=== PATIENT | female | born 1970 | race Caucasian/White ===

== ENCOUNTER 2019-10-06 08:29 | Emergency (ER) | payer BC, SELFPAY ==
--- NOTE | ~2019-10-06 | US_ITS ---
EXAMINATION: US venous doppler [facility] DATE: 10/06/2019 09:09 INDICATION: Left calf pain. TECHNIQUE: Grayscale ultrasound images without and with compression and Doppler ultrasound images of the left lower extremity veins were obtained. COMPARISON: Left knee radiographs 10/06/2019 FINDINGS: The visualized portions of left common femoral vein, profunda (deep) femoral vein, femoral vein, popl iteal vein, peroneal veins, posterior tibial veins, and greater saphenous vein outflow are patent. Th ere is a moderate-sized Sims's cyst with loose bodies. IMPRESSION: 1. No deep venous thrombosis. 2. Moderate-sized left Sims's cyst with loose bodies. Reviewed, dictated and finalized at location A.
--- NOTE | ~2019-10-06 | XR_ITS ---
EXAMINATION: XR knee LT min 4V DATE: 10/06/2019 08:51 INDICATION: Anterior left knee pain. TECHNIQUE: 4 views of left knee were obtained. COMPARISON: None. FINDINGS: Bone alignment is normal. No fracture. There is mild osteoarthritis of medial and patellofe moral compartments. No knee joint effusion. Calcifications posterior to the knee are likely loose bod ies in a Sims's cyst. IMPRESSION: 1. Mild left knee osteoarthritis. 2. Calcifications posterior to the knee, likely loose bodies in a Sims's cyst. Reviewed, dictated and finalized at location A.
--- NOTE | 2019-10-06 08:40 | ED.LOWEXIN ---
HPI - Extremity Injury (Lower) General Chief Complaint: Extremity Injury, Lower Stated Complaint: DVT? LEFT LEG Time Seen by Provider: 10/06/19 08:34 Source: RN notes reviewed History of Present Illness HPI Narrative: Patient presents emergency department from home for left calf pain. Patient states symptoms began 2 days ago. Patient states pain initially was in the anterior lower knee in the posterior knee and is moved to the calf. She denies any known trauma or injury she states she has noted mild swelling of the calf she denies any fevers or chills chest pain shortness of breath ankle pain or any other symptoms she denies any history of previous DVTs. Related Data Allergies Allergy/AdvReac Type Severity Reaction Status Date / Time nitrofurantoin Allergy Unknown Dizziness Verified 10/06/19 08:51 NITROFURANTOIN MACROCRYSTAL Allergy DIZZY Uncoded 10/06/19 08:51 Review of Systems Review of Systems: Narrative: Gen.: Denies fevers or chills CV: Denies chest pain Respiratory: Denies shortness of breath Musculoskeletal: See HPI Neuro: Denies numbness, tingling, weakness Skin: Denies rash Endo: Denies DM PMFSH Past Medical History Medical History (Updated 10/06/19 @ 09:42 by Jarad Min DO) Patient denies significant medical history Social History Social History (Updated 10/06/19 @ 08:41 by Jarad Min DO) Smoking packs per day: 0.5 Smoking cigarettes per day: 10.0 Exam Narrative: Exam Narrative: APPEARANCE: No acute distress, nontoxic, resting in bed EYES: EOMI HEENT: Normocephalic, atraumatic, RESPIRATORY: No respiratory distress Clear to auscultation bilaterally with no rhonchi wheezing or rales. CARDIOVASCULAR: Regular rate and rhythm without murmurs rubs or gallops. MUSCULOSKELETAl: Moves all extremities. No clubbing, cyanosis or edema. Left calf is tender to palpation mild swelling no ecchymosis no tenderness of the left knee with full range of motion no tenderness of the left ankle or hip dorsalis pedis pulse 2+, neurovascular intact NEURO: Awake and alert. Following commands, speech normal, no focal deficits SKIN:: Warm, dry. No rashes lesions or abrasions PSYCHIATRIC: Normal affect/mood, Course Course Emergency Course: Discussed with patient results of workup and diagnosis. Discussed need for follow-up with primary care, proper use of medication, and reasons to return to the emergency department. Patient understands and agrees to current treatment plan Vital Signs Vital signs: Vital Signs Temperature 98.3 F 10/06/19 08:48 Pulse Rate 81 10/06/19 08:48 Respiratory Rate 16 10/06/19 08:48 Blood Pressure 138/78 10/06/19 08:48 Pulse Oximetry 98 10/06/19 08:48 Temperature 98.3 F 10/06/19 08:48 Pulse Rate 81 10/06/19 08:48 Respiratory Rate 16 10/06/19 08:48 Blood Pressure 138/78 10/06/19 08:48 Pulse Oximetry 98 10/06/19 08:48 MDM - Extremity Injury (Lower) Imaging Data Radiologist's impression: ITS Impressions Knee X-Ray 10/06/19 08:55 IMPRESSION: 1. Mild left knee osteoarthritis. 2. Calcifications posterior to the knee, likely loose bodies in a Sims's cyst. Venous Doppler Study 10/06/19 09:14 IMPRESSION: 1. No deep venous thrombosis. 2. Moderate-sized left Sims's cyst with loose bodies. Discharge Plan Discharge Clinical Impression: Synovial cyst of popliteal space [Sims], left knee Patient Disposition: Home, Self-Care Condition: Stable Instructions: Antibiotic Form, Bakers Cyst (ED) Additional Instructions: Return for increasing pain numbness or tingling in the extremities or any other symptoms of concern Prescriptions: New ibuprofen [IBU] 600 mg tablet 600 mg PO Q6H PRN (Reason: pain) Qty: 20 RF: 0 Follow-up/Referrals: PHYSICIAN,INFORMATION SYSTEMS SUPERVISOR [Primary Care Provider] - Sp Yost MD [Physician] - (Follow-up in 1-2 days for further on-call physician treatment and evaluation) Time of Disposit
[2019-10-06 08:48] VITALS: BP 138/78; PULSE 81; RESP 16; TEMP 36.8; O2SAT 98
== END 2019-10-06 10:00 | disposition home or self-care (01) ==
PROVIDERS: Emergency Provider Emergency Medicine
DX: M71.22 Synovial cyst of popliteal space [Baker], left knee (principal); F17.210 Nicotine dependence, cigarettes, uncomplicated
CPT/HCPCS: 73564; 93971; 99284

== ENCOUNTER 2020-05-26 08:13 | Emergency (ER) | payer BC, SELFPAY ==
[2020-05-26 08:20] VITALS: BP 134/57; PULSE 90; RESP 18; TEMP 36.3; O2SAT 100
--- NOTE | 2020-05-26 09:18 | ED.GENADULT ---
HPI - General Adult General Chief complaint: Skin/Abscess/Foreign Body Stated complaint: left eye redness/swelling Time Seen by Provider: 05/26/20 08:22 Source: patient Mode of arrival: ambulatory Limitations: no limitations History of Present Illness HPI narrative: Patient is 49 years old white female presents with skin rash left side of her face. Started 2 to 3 days ago. Patient reported having numerous recurrent similar symptoms in the past and usually gets better on clindamycin. Patient denies any fever, chills, nausea, vomiting, headache Related Data Home Medications Medication Instructions Recorded Confirmed amoxicillin-pot clavulanate 1 tablet PO DAILY 05/26/20 05/26/20 Allergies Allergy/AdvReac Type Severity Reaction Status Date / Time nitrofurantoin Allergy Unknown Dizziness Verified 05/26/20 08:24 NITROFURANTOIN MACROCRYSTAL Allergy DIZZY Uncoded 05/26/20 08:24 Review of Systems Review of Systems: Narrative: CONSTITUTIONAL: Denies fever, chills, or sweats. EYES: Denies visual changes, redness, or discharge. ENT: Denies rhinorrhea, congestion, sore throat, or otalgia. CARDIOVASCULAR: Denies chest pain, palpitations, or edema. RESPIRATORY: Denies cough or dyspnea. GASTROINTESTINAL: Denies abdominal pain, nausea, vomiting, or diarrhea. GENITOURINARY: Denies dysuria or hematuria. SKIN: Denies rash or itching. MUSCULOSKELETAL: Denies back pain, joint pain, or myalgia. NEUROLOGIC: Denies headache, numbness, or weakness. PSYCHIATRIC: Denies anxiety or depression. PMFSH Past Medical History Medical History Patient denies significant medical history Social History Social History Smoking packs per day: 0.5 Smoking cigarettes per day: 10.0 Gender identity (if verbalized by the patient): Female Exam Narrative: Exam Narrative: General appearance: Well-developed, well-nourished Skin: Normal color, 3 x 2 cm erythematous changes below left lower eyelid with few blisters Head: Normocephalic, nontraumatic Eyes: Clear conjunctiva ENT: Oropharynx normal, ears normal, nose normal Chest and respiratory: Airway patent, no respiratory distress, no accessory muscle use Heart: Regular rate/rhythm Neurologic: Alert and oriented ?3, [employer]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, no gross motor deficit Course Course Emergency Course: Stable Vital Signs Vital signs: Vital Signs Temperature 36.3 C L 05/26/20 08:20 Pulse Rate 90 05/26/20 08:20 Respiratory Rate 18 05/26/20 08:20 Blood Pressure 134/57 L 05/26/20 08:20 Pulse Oximetry 100 05/26/20 08:20 Temperature 36.3 C L 05/26/20 08:20 Pulse Rate 90 05/26/20 08:20 Respiratory Rate 18 05/26/20 08:20 Blood Pressure 134/57 L 05/26/20 08:20 Pulse Oximetry 100 05/26/20 08:20 Medical Decision Making MDM Narrative Medical decision making narrative: Patient presents with recurrent facial cellulitis, usually gets better on clindamycin Patient declined and refused to accept the possibilities of herpes simplex infection. She is telling me that she was told in the past that there is a possibility of herpes, did not get better on antiviral medication and the only medicine make the symptoms go away is clindamycin. Differential Diagnosis Differential Diagnosis: Cellulitis, herpes simplex infection Vital Signs Vital Signs: Vital Signs Temperature 36.3 C L 05/26/20 08:20 Pulse Rate 90 05/26/20 08:20 Respiratory Rate 18 05/26/20 08:20 Blood Pressure 134/57 L 05/26/20 08:20 Pulse Oximetry 100 05/26/20 08:20 Temperature 36.3 C L 05/26/20 08:20 Pulse Rate 90 01
== END 2020-05-26 09:35 | disposition home or self-care (01) ==
PROVIDERS: Emergency Provider Emergency Medicine
DX: L03.211 Cellulitis of face (principal); F17.210 Nicotine dependence, cigarettes, uncomplicated
CPT/HCPCS: 99283

== ENCOUNTER 2020-05-27 10:15 | Emergency (ER) | payer BC, SELFPAY ==
[2020-05-27 10:30] VITALS: BP 112/63; PULSE 86; RESP 18; TEMP 36.2; O2SAT 98
--- NOTE | 2020-05-27 11:11 | ED.GENADULT ---
HPI - General Adult General Chief complaint: Skin/Abscess/Foreign Body Stated complaint: rash on eye Time Seen by Provider: 05/27/20 10:43 Source: patient Mode of arrival: ambulatory Limitations: no limitations History of Present Illness HPI narrative: Patient returns to the emergency department after being seen on 05-26-2020 due to cellulitis and herpes simplex to the left side of her face. Patient states she has had this happen recurrently and thought that clindamycin was the medication of choice however she normally resolves with Keflex. Patient has not been on any antibiotics. Patient states her rash started on Saturday. Patient denies pain in her left eye, redness of her left eye, drainage or discharge to her left eye or any other signs of ocular involvement. Related Data Allergies Allergy/AdvReac Type Severity Reaction Status Date / Time nitrofurantoin Allergy Unknown Dizziness Verified 05/27/20 10:38 NITROFURANTOIN MACROCRYSTAL Allergy DIZZY Uncoded 05/27/20 10:38 Review of Systems Review of Systems: Narrative: CONSTITUTIONAL: Denies fever, chills, or sweats. EYES: Denies visual changes, redness, or discharge. ENT: Denies rhinorrhea, congestion, sore throat, or otalgia. CARDIOVASCULAR: Denies chest pain, palpitations, or edema. RESPIRATORY: Denies cough or dyspnea. GASTROINTESTINAL: Denies abdominal pain, nausea, vomiting, or diarrhea. GENITOURINARY: Denies dysuria or hematuria. SKIN: Reports left side face rash and itching. MUSCULOSKELETAL: Denies back pain, joint pain, or myalgia. NEUROLOGIC: Denies headache, numbness, dizziness, or weakness. PSYCHIATRIC: Denies anxiety or depression. PMFSH Past Medical History Medical History Patient denies significant medical history Social History Social History Smoking packs per day: 0.5 Smoking cigarettes per day: 10.0 Gender identity (if verbalized by the patient): Female Exam Narrative: Exam Narrative: GENERAL: Well-appearing, well-nourished, and in no acute distress. HEAD: Normocephalic, atraumatic. EYES: PERRLA and EOMI. herpes simplex to the left side of her eye, No sign of intraocular involvement. CHEST: Clear to auscultation. No respiratory distress. No wheezes rales or rhonchi HEART: Regular rate and rhythm. EXTREMITIES: Normal range of motion. No edema. SKIN: Warm, dry, no rash. NEURO: No focal deficits. Alert and oriented x3. PSYCH: Normal mood and affect. Course Vital Signs Vital signs: Vital Signs Temperature 97.2 F L 05/27/20 10:30 Pulse Rate 86 05/27/20 10:30 Respiratory Rate 18 05/27/20 10:30 Blood Pressure 112/63 05/27/20 10:30 Pulse Oximetry 98 05/27/20 10:30 Temperature 97.2 F L 05/27/20 10:30 Pulse Rate 86 05/27/20 10:30 Respiratory Rate 18 05/27/20 10:30 Blood Pressure 112/63 05/27/20 10:30 Pulse Oximetry 98 05/27/20 10:30 Medical Decision Making MDM Narrative Medical decision making narrative: I discussed with the patient the importance of her taking an antiviral to avoid intraocular involvement. Instructed the patient to follow-up with ophthalmology and dermatology for further evaluation and management. Patient wants to be switched to Keflex as she states that she is getting stomach upset and a foul taste in her mouth but I think with clindamycin and she does not want to continue taking it. Patient states she is also discontinued the Augmentin. Differential Diagnosis Differential Diagnosis: Herpes simplex, cellulitis Vital Signs Vital Signs: Vital Signs Temperature 97.2 F L 05/27/20 10:30 Pulse Rate 86 05/27/20 10:30 Respiratory Rate 18 05/27/20 10:30 Blood Pressure 112/63 05/27/20 10:30 Pulse Oximetry 98 05/27/20 10:30 Temperature 97.2 F L 05/27/20 10:30 Pulse Rate 86 05/27/20 10:30 Respiratory Rate 18 05/27/20 10:30 Blood Pressure 112/63 05/27/20 10:30 Pulse
== END 2020-05-27 11:26 | disposition home or self-care (01) ==
PROVIDERS: Emergency Provider Emergency Medicine
DX: B00.9 Herpesviral infection, unspecified (principal); L03.211 Cellulitis of face; F17.210 Nicotine dependence, cigarettes, uncomplicated
CPT/HCPCS: 99283

== ENCOUNTER 2020-07-24 12:30 | Emergency (ER) | payer BC, SELFPAY ==
--- NOTE | ~2020-07-24 | XR_ITS ---
EXAMINATION: XR chest 2V DATE: 07/24/2020 13:04 INDICATION: Left chest pain. TECHNIQUE: Frontal and lateral views of the chest were obtained. COMPARISON: None. FINDINGS: The chest demonstrates clear lungs without pneumonia, pleural effusion, or pneumothorax. Th e heart size is normal. IMPRESSION: 1. No acute cardiopulmonary disease. Reviewed, dictated and finalized at location A.
[2020-07-24 12:35] VITALS: BP 131/67; PULSE 78; RESP 20; TEMP 36.3; O2SAT 100
--- NOTE | 2020-07-24 12:38 | ECG_ITS ---
Measurements Intervals [place] Rate: 92 P: 68 MT: 129 QRS: 72 QRSD: 102 T: 57 QT: 361 QTc: 449 Interpretive Statements SINUS RHYTHM POSSIBLE LEFT ATRIAL ENLARGEMENT BORDERLINE ST ABNORMALITY- ANTEROLAT/INF LEADS BORDERLINE ECG Electronically Signed On 07-24-2020 14:16:45 CDT by Patricio Schwarz D.O.
[2020-07-24 12:52] LABS: Basophils Absolute Auto 0.1 K/mm3 (0.0-0.1); Basophils Percent Auto 0.8 % (0.2-1.2); Eosinophils Absolute Auto 0.1 K/mm3 (0-0.3); Eosinophils Percent Auto 0.7 % (0-4.4); Immature Granulocyte Absolute 0.03 K/mm3 (0.00-0.031); Immature Granulocyte Percent A 0.3 % (0-0.5); Lymphocytes Absolute Auto 2.62 K/mm3 (0.9-3.2); Lymphocytes Percent Auto 23.8 % (18.3-44.2); Mean Corpuscular Hemoglobin 33.3 pg (26-34); Mean Corpuscular Volume 97.7 fl (80-100); Mean Platelet Volume 10.9 fl (7.4-10.4); Monocytes Absolute Auto 0.8 K/mm3 (0.1-0.6); Neutrophils Absolute Auto 7.4 K/mm3 (1.3-6.7); Neutrophils Percent Auto 67.4 % (45.5-73.1); Platelet Count Result 287 k/mm3 (150-375); Red Blood Count 4.81 M/mm3 (4.2-5.4); Red Cell Distribution Width 12.2 % (11.5-14.5)
[2020-07-24] MEDS: KETOROLAC 30 MG/ML VIAL (*BKC) IV PUSH (13:00)
[2020-07-24 13:03] LABS: Anion Gap 6 mmol/L (8-16); Blood Urea Nitrogen 11 mg/dL (7-17); Carbon Dioxide 31 mmol/L (22-30); Chloride 101 mmol/L (98-107); Estimated CRCL calculation 75 ml/min; Estimated Glomerular Filt Rate > 60; Glucose 125 mg/dL (65-105); INR 0.9; Potassium 3.8 mmol/L (3.4-5.0); Prothrombin Time 12.6 Seconds (11.1-14.7); Sodium 138 mmol/L (137-145)
[2020-07-24 13:04] LABS: Partial Thromboplastin Time 25.4 SECONDS (22.3-36.8)
[2020-07-24 13:07] LABS: D Dimer 0.27 ug/mL (<0.48)
[2020-07-24 13:15] LABS: Troponin I < 0.012 ng/mL (0.000-0.034)
[2020-07-24 13:58] VITALS: BP 137/85; PULSE 76; RESP 20; O2SAT 98
[2020-07-24 15:25] VITALS: BP 136/91; PULSE 70; RESP 20; O2SAT 99
[2020-07-24 15:56] LABS: Troponin I < 0.012 ng/mL (0.000-0.034)
--- NOTE | 2020-07-24 16:00 | ED.CHESTPAIN ---
HPI - Chest Pain General Chief Complaint: Chest Pain Stated Complaint: left chest pain Time Seen by Provider: 07/24/20 12:36 Source: patient Mode of arrival: ambulatory Limitations: no limitations History of Present Illness HPI narrative: Patient is a 49-year-old with no major medical problems here with complaints of left-sided chest pain on and off for past few days patient states that pain this morning was more annoying . She states that the pain is mostly under the left breast burning in nature. She denies any fever or chills no history of cough or shortness of breath. MD complaint: chest pain Onset (ago): day(s) (1) Timing of current episode: constant Pain location: left chest Pain radiation: none Severity: moderate Quality: aching and burning Relieving factors: nothing Exacerbating factors: inspiration Risk Factors Coronary artery disease risk factors: none Related Data Allergies Allergy/AdvReac Type Severity Reaction Status Date / Time nitrofurantoin Allergy Unknown Dizziness Verified 07/24/20 12:40 NITROFURANTOIN MACROCRYSTAL Allergy DIZZY Uncoded 07/24/20 12:40 Review of Systems Review of Systems: All systems reviewed & are unremarkable except as noted in HPI and below Constitutional: Constitutional: Reports no additional constitutional complaints Eyes: Eyes: Reports no additional eye complaints ENT: Reports system reviewed and no additional complaints, except as documented Cardiovascular: Cardiovascular: Reports no additional cardiovascular complaints Respiratory: Respiratory: Reports no additional respiratory complaints Gastrointestinal: Gastrointestinal: Reports no additional gastrointestinal complaints Musculoskeletal: Musculoskeletal: Reports no additional musculoskeletal complaints Neurologic: Reports system reviewed and no additional complaints, except as documented Psychiatric: Psychiatric: Reports no additional psychiatric complaints Endocrine: Endocrine: Reports no additional endocrine complaints [facility] Past Medical History Medical History Patient denies significant medical history Social History Social History Smoking packs per day: 0.5 Smoking cigarettes per day: 10.0 Gender identity (if verbalized by the patient): Female Exam Narrative: Exam Narrative: GENERAL: Well-appearing,thin and in no acute distress. HEAD: Normocephalic, atraumatic. EYES: PERRLA and EOMI.. NECK: Supple. CHEST: Clear to auscultation. No respiratory distress. HEART: Regular rate and rhythm. No murmur heard. Normal peripheral pulses. ABDOMEN: Soft, nontender, nondistended, normal active bowel sounds. EXTREMITIES: Normal range of motion. No edema. SKIN: Warm, dry, no rash. NEURO: No focal deficits. Alert and oriented x3. PSYCH: Normal mood and affect. Course Course Emergency Course: Her pain appears to be more atypical at this time did give her IV Toradol which helped with her pain her EKG and her lab work were unremarkable. Advised her to take PPI and follow-up with her primary doctor. And also recommended to quit smoking. Vital Signs Vital signs: Vital Signs Temperature 36.3 C L 07/24/20 12:35 Pulse Rate 78 07/24/20 12:35 Respiratory Rate 20 07/24/20 12:35 Blood Pressure 131/67 07/24/20 12:35 Pulse Oximetry 100 07/24/20 12:35 Temperature 36.3 C L 07/24/20 12:35 Pulse Rate 70 07/24/20 15:25 Respiratory Rate 20 07/24/20 15:25 Blood Pressure 136/91 H 07/24/20 15:25 Pulse Oximetry 99 07/24/20 15:25 MDM - Chest Pain MDM Narrative Medical decision making narrative: Given history of left-sided chest pain will do CBC, chemistry and serial troponin. EKG and will give her Toradol for pain Lab Data Result diagrams: 07/24/20 12:45 07/24/20 12:45 Labs: Lab Results 07/24/20 07/24/20 07/24/20 Range/Units 12:45 12:45 12:45 WBC
[2020-07-24 16:19] VITALS: BP 146/83; PULSE 78; RESP 18; O2SAT 98
== END 2020-07-24 16:20 | disposition home or self-care (01) ==
PROVIDERS: Emergency Provider Family Medicine
DX: R07.9 Chest pain, unspecified (principal); F17.210 Nicotine dependence, cigarettes, uncomplicated; R94.31 Abnormal electrocardiogram [ECG] [EKG]
CPT/HCPCS: 36415; 71046; 80048; 84484; 85025; 85380; 85610; 85730; 93005; 96374; 99284; J1885

== ENCOUNTER 2022-03-15 13:41 | Emergency (ER) | payer BC, SELFPAY ==
--- NOTE | ~2022-03-15 | XR_ITS ---
EXAMINATION: XR chest 2V 03/15/2022 14:41 INDICATION: Chest pain PROCEDURE: 2 view chest COMPARISON: 07/24/2020 FINDINGS: The lungs are clear. The cardiomediastinal silhouette is within normal limits. There are no pleural effusions. There is no pneumothorax suspected. IMPRESSION: 1: NO ACUTE CARDIOPULMONARY DISEASE. Reviewed, dictated and finalized at location A.
--- NOTE | 2022-03-15 13:43 | ECG_ITS ---
Measurements Intervals [place] Rate: 90 P: 61 VA: 124 QRS: 61 QRSD: 100 T: 53 QT: 342 QTc: 419 Interpretive Statements SINUS RHYTHM POSSIBLE LEFT ATRIAL ENLARGEMENT DELAYED PRECORDIAL R/S TRANSITION BORDERLINE ST ABNORMALITY- INF/LAT LEADS BORDERLINE ECG COMPARED TO ECG 07/24/2020 12:40:08 NO SIGNIFICANT CHANGES Electronically Signed On 03-15-2022 14:20:10 CDT by Patricio Schwarz D.O.
[2022-03-15 13:51] VITALS: BP 146/86; PULSE 89; RESP 20; TEMP 37; O2SAT 98
[2022-03-15 14:16] LABS: Basophils Absolute Auto 0.1 K/mm3 (0.0-0.1); Basophils Percent Auto 0.7 % (0.2-1.2); Eosinophils Absolute Auto 0.1 K/mm3 (0-0.3); Eosinophils Percent Auto 0.8 % (0-4.4); Hematocrit 42.2 % (37.0-47.0); Hemoglobin 14.5 g/dL (12.0-15.0); Immature Granulocyte Absolute 0.05 K/mm3 (0.00-0.031); Immature Granulocyte Percent A 0.4 % (0-0.5); Lymphocytes Percent Auto 29.2 % (18.3-44.2); Mean Corpuscular HGB Conc 34.4 g/dl (32-36); Mean Corpuscular Volume 96.1 fl (80-100); Mean Platelet Volume 11.5 fl (7.4-10.4); Monocytes Absolute Auto 0.6 K/mm3 (0.1-0.6); Monocytes Percent Auto 5.5 % (2.6-8.5); Neutrophils Absolute Auto 7.2 K/mm3 (1.3-6.7); Neutrophils Percent Auto 63.4 % (45.5-73.1); Platelet Count Result 273 k/mm3 (150-375); Red Blood Count 4.39 M/mm3 (4.2-5.4); White Blood Count 11.3 K/mm3 (4.5-10.0)
[2022-03-15 14:25] LABS: Alanine Aminotransferase 19 U/L (6-35); Albumin Level 4.1 g/dL (3.5-5.1); Alkaline Phosphatase 63 U/L (38-126); Anion Gap 13 mmol/L (8-16); Aspartate Amino Transferase 23 U/L (14-36); Bilirubin,Total 0.4 mg/dL (0.2-1.3); Blood Urea Nitrogen 14 mg/dL (7-17); Calcium 8.4 mg/dL (8.4-10.2); Carbon Dioxide 19 mmol/L (22-30); Chloride 104 mmol/L (98-107); Estimated CRCL calculation 64 ml/min; Estimated Glomerular Filt Rate > 60; Glucose 127 mg/dL (65-110); Lipase 99 U/L (23-300); Potassium 3.7 mmol/L (3.4-5.0); Sodium 136 mmol/L (137-145)
[2022-03-15 14:41] LABS: Troponin I < 0.012 ng/mL (0.000-0.034)
[2022-03-15 14:56] LABS: Prothrombin Time 12.7 Seconds (11.1-14.7)
[2022-03-15 14:57] LABS: Partial Thromboplastin Time 27.5 SECONDS (22.3-36.8)
--- NOTE | 2022-03-15 15:30 | ED.ABDPAIN ---
HPI - Abdominal Pain General Chief Complaint: Abdominal Pain Stated Complaint: Chest Pain Time Seen by Provider: 03/15/22 15:17 History of Present Illness HPI narrative: Patient is a 51-year-old female with a history of smoking here for evaluation of chest pain over the past 2-1/2 days. She states the pain is present in the center of her chest and occasionally moves along the left side of her thorax. The pain is worse with movement of the thorax and with palpation of the center of her chest. No exertional component; she is able to exercise without pain. States that she has had similar type pain and was diagnosed with pleurisy about 10 years ago. She has been taking Advil with good relief of the pain, but the longevity is concerning to her. Currently pain free. Denies any shortness of breath, cough, nausea or vomiting. No history of DVT, recent long trips or travel or surgeries. Related Data Allergies Allergy/AdvReac Type Severity Reaction Status Date / Time nitrofurantoin Allergy Unknown Dizziness Verified 03/15/22 15:19 NITROFURANTOIN MACROCRYSTAL Allergy DIZZY Uncoded 07/24/20 12:40 Review of Systems Review of Systems: Gen: Denies fevers or chills Eyes: Denies eye pain or visual change ENT: Denies congestion Respiratory: Denies shortness of breath or cough CV: Reports chest pain. Denies chest pain or palpitations GI: Denies abdominal pain nausea, emesis or diarrhea denies burning, urgency, frequency or hematuria Musculoskeletal: Denies back pain or muscle pain Neuro: Denies numbness, tingling, weakness or focal weakness Skin: Denies rash Except as documented, all other systems reviewed and negative PMFSH Past Medical History Medical History Patient denies significant medical history Social History Social History Smoking packs per day: 0.5 Smoking cigarettes per day: 10.0 Gender identity (if verbalized by the patient): Female Exam Narrative: APPEARANCE: appears younger than stated age. Well appearing, no pain in distress, well-nourished. Head: Normocephalic and atraumatic. EYES: PERRLA/EOMI, conjunctivae clear NOSE: No nasal drainage EARS: External ear normal in appearance THROAT: Oropharynx is clear. Mucous membranes are moist. NECK: Supple. No adenopathy, no masses. RESPIRATORY: Airway patent, respirations nonlabored. Clear to auscultation bilaterally, no rales, rhonchi, wheezing. CARDIOVASCULAR: Regular rate and rhythm without murmurs, rubs, or gallops. ABDOMINAL: Normoactive bowel sounds. Soft, nontender, nondistended. No rebound tenderness or guarding. MUSCULOSKELETAL: Reproducible chest pain in center of chest. Extremities are warm and well-perfused. Moves all extremities well. No edema. No calf tenderness or tenderness along venous system. NEURO: Normal speech. No focal neurologic deficits. SKIN: Skin is warm and dry. No rashes. PSYCHIATRIC: Normal affect/mood. Course Vital Signs Vital signs: Vital Signs Temperature 98.6 F 03/15/22 13:51 Pulse Rate 89 03/15/22 13:51 Respiratory Rate 20 03/15/22 13:51 Blood Pressure 146/86 H 03/15/22 13:51 Pulse Oximetry 98 03/15/22 13:51 Oxygen Delivery Room Air 03/15/22 13:51 Temperature 98.6 F 03/15/22 13:51 Pulse Rate 72 03/15/22 16:48 Respiratory Rate 16 03/15/22 16:48 Blood Pressure 144/85 H 03/15/22 16:48 Pulse Oximetry 99 03/15/22 16:48 Oxygen Delivery Room Air 03/15/22 13:51 MDM - Abdominal Pain MDM Narrative Medical decision making narrative: 51-year-old female here for evaluation of chest pain over the past several days. She is nontoxic-appearing, appears younger than stated age, and has normal vital signs. Pain is reproducible on palpation of the thorax. exam without evidence of volume overload so doubt heart failure. EKG without signs of active ischemia. Given the timing of pain to ER pr
[2022-03-15 16:20] LABS: D Dimer 0.45 ug/mL (<0.48)
[2022-03-15 16:48] VITALS: BP 144/85; PULSE 72; RESP 16; O2SAT 99
== END 2022-03-15 16:49 | disposition home or self-care (01) ==
PROVIDERS: Physician Assistant; Emergency Provider Emergency Medicine
DX: R07.9 Chest pain, unspecified (principal); F17.210 Nicotine dependence, cigarettes, uncomplicated
CPT/HCPCS: 36415; 71046; 80053; 83690; 84484; 85025; 85380; 85610; 85730; 93005; 99284